=== PATIENT | female | born 1945 | race Caucasian/White ===

== ENCOUNTER 2016-09-21 12:31 | Outpatient (CLI) | payer MEDICARE, OTHER | END 2016-09-21 12:32 | disposition home or self-care (01) | DX: Z00.00 Encounter for general adult medical examination without abnormal findings (principal); E55.9 Vitamin D deficiency, unspecified; E78.5 Hyperlipidemia, unspecified; R07.82 Intercostal pain ==

== ENCOUNTER 2016-10-05 15:04 | Outpatient (CLI) | payer MEDICARE, OTHER | END 2016-10-05 15:05 | disposition home or self-care (01) | DX: Z12.31 Encounter for screening mammogram for malignant neoplasm of breast (principal) ==

== ENCOUNTER 2017-07-27 07:49 | Day surgery (SDC) | payer MEDICARE, OTHER ==
[2017-07-27] MEDS ORDERED: LACTATED RINGERS 1,000 ML IV ONE (08:19)
[2017-07-27] MEDS ORDERED: MIDAZOLAM 2 MG/2 ML VIAL IVP ONE (09:17)
[2017-07-27] MEDS ORDERED: fentaNYL 100 MCG/2 ML VIAL IVP ONE (09:17)
[2017-07-27 10:43] VITALS: BP 122/70
== END 2017-07-27 07:50 | disposition home or self-care (01) ==
LOC: SDS 07:49
PROVIDERS: ATTEND Surgery
PROC: 0DBN8ZX Excision of Sigmoid Colon, Via Natural or Artificial Opening Endoscopic, Diagnostic (ICD-10-PCS; 2017-07-27)
PROC: 0DBK8ZX Excision of Ascending Colon, Via Natural or Artificial Opening Endoscopic, Diagnostic (ICD-10-PCS; principal; 2017-07-27 09:00)
DX: Z12.11 Encounter for screening for malignant neoplasm of colon (principal); D12.4 Benign neoplasm of descending colon; D12.5 Benign neoplasm of sigmoid colon; K64.8 Other hemorrhoids; I10 Essential (primary) hypertension
CPT/HCPCS: 45380; 45385; J7120

== ENCOUNTER 2018-01-11 13:00 | Outpatient (CLI) | payer MEDICARE, OTHER | END 2018-01-11 23:59 | LOC: RT 13:00 | PROVIDERS: ATTEND Internal Medicine Cardiovascular Disease | DX: I25.10 Atherosclerotic heart disease of native coronary artery without angina pectoris (principal) | CPT/HCPCS: 93005 ==

== ENCOUNTER 2019-10-24 10:09 | Outpatient (CLI) | payer MEDICARE, OTHER ==
--- NOTE | 2019-10-29 08:43 | Mammography Report ---
Reason: ROUTINE MAMMO Procedure Date: 10/24/2019 Accession Number: [id number] / [id number] Procedure: RENZO - Screening Mammo w/Wiliam CPT Code: Final Report FULL RESULT: EXAM: Screening Mammo w/Wiliam DATE: 10/24/2019 11:01 AM CLINICAL HISTORY: Screening encounter. History of nulliparity. TECHNIQUE: (B) - Bilateral CC and MLO views were obtained. COMPARISON: 10/05/2016 through 08/25/2010. PARENCHYMAL PATTERN: (D) - The breast(s) demonstrate(s) heterogeneously dense fibroglandular parenchyma. FINDINGS: Coarse typically benign calcifications and large rodlike typically benign calcifications are redemonstrated. There are no suspicious masses, calcifications, or areas of distortion. IMPRESSION: Benign findings. BI-RADS category 2. RECOMMENDATION: (ANNUAL) - Recommend routine annual screening mammography. BI-RADS CATEGORY: (2) - Benign Findings. STANDARD QUALIFYING STATEMENTS: 1. This examination was not reviewed with the aid of Computer-Aided Detection (CAD). 2. A negative or benign imaging report should not preclude biopsy if clinically suspicious findings are present. 3. Dense breasts may obscure an underlying neoplasm. 4. This examination was reviewed with the aid of 3D breast imaging (tomosynthesis).
== END 2019-10-24 10:10 | disposition home or self-care (01) ==
LOC: DI 10:09
PROVIDERS: ATTEND Registered Nurse
DX: Z12.31 Encounter for screening mammogram for malignant neoplasm of breast (principal)
CPT/HCPCS: 77063; 77067

== ENCOUNTER 2019-10-24 10:13 | Outpatient (CLI) | payer MEDICARE, OTHER ==
--- NOTE | 2019-10-29 11:52 | DEXA Report ---
Reason: POST MENAPAUSAL Procedure Date: 10/24/2019 Accession Number: [id number] / [id number] Procedure: DEX - Dexa Spine and/or Hip CPT Code: Final Report FULL RESULT: EXAM: Dexa Spine and/or Hip DATE: 10/24/2019 11:12 AM CLINICAL HISTORY: POST MENAPAUSAL TECHNIQUE: Dual energy x-ray absorptiometry (DXA) was performed on a [employer] System. Regions measured are the AP Spine, femoral neck, and if needed forearm. COMPARISON: None. In accordance with the International Society for Clinical Densitometry (ISCD) guidelines, data from previous exams may be reanalyzed using current recommendations and techniques. This is done to allow a more accurate basis for comparison with the current study. FINDINGS: The data for the lumbar spine is as follows: BMD (g/cm/cm) T-SCORE Z-SCORE REGION L1 1.062 -0.6 0.0 L2 1.291 0.8 1.4 L3 1.235 0.3 0.9 L4 1.197 0.0 0.6 TOTAL 1.186 0.1 0.7 NOTE: All evaluable vertebrae are used for classification The data for the hip is as follows: BMD (g/cm/cm) T-SCORE Z-SCORE REGION Neck 0.864 -1.3 0.0 TOTAL 0.850 -1.3 -0.3 NOTE: The femoral neck or total proximal femur, whichever is lowest, is used for classification. IMPRESSION: THE WHO CLASSIFICATION BASED ON THE INTERNATIONAL REFERENCE STANDARD IS OSTEOPENIA. THE FRACTURE RISK IS INCREASED. RECOMMENDATION: Patients with diagnosis of osteoporosis or osteopenia should have regular bone mineral density assessment. For those eligible for Medicare, routine testing is allowed once every 2 years. Testing frequency can be increased for patients who have rapidly progressing disease or for those who are receiving medical therapy to restore bone mass. COMMENT: World Health Organization (WHO) definitions for osteoporosis and osteopenia: NORMAL BMD: T-score at -1.0 or higher, fracture risk is low OSTEOPENIA BMD: T-score between -1.0 and -2.5, fracture risk is increased. OSTEOPOROSIS BMD: T-score at -2.5 or lower, fracture risk is high. National Osteoporosis Foundation recommends: 1. Obtain adequate dietary calcium (at least 1200 mg per day) and vitamin D (400-800 international units per day). 2. Participate, as appropriate, in regular weightbearing and muscle-strengthening exercise. 3. Avoid tobacco use and reduce alcohol and caffeine intake. 4. For more detailed information see the website at www.NOF.org.
== END 2019-10-24 10:14 | disposition home or self-care (01) ==
LOC: DI 10:13
PROVIDERS: ATTEND Registered Nurse
DX: M85.88 Other specified disorders of bone density and structure, other site (principal); Z78.0 Asymptomatic menopausal state
CPT/HCPCS: 77080

== ENCOUNTER 2022-05-06 13:54 | Outpatient (CLI) | payer MEDICARE, OTHER ==
--- NOTE | 2022-05-06 16:05 | XRAY Report ---
PROCEDURE: Hip w/Pelvis 2-3V LT INDICATIONS: PAIN IN LEFT HIP JOINT TECHNIQUE: AP pelvis with lateral view(s) of the left hip(s). COMPARISON: None. FINDINGS: Bones: No fractures or dislocations. Degenerative changes of both hips are mild. Pelvic ring appears intact. No suspicious bony lesions. The visualized lower lumbar spine has degenerative changes wit h disc disease at L5-S1. Soft tissues: The visualized bowel gas pattern is normal. No suspicious soft tissue calcifications. IMPRESSION: Mild degenerative changes of both hips without acute abnormality. Reviewed by: Carlos Monsalve on 05/06/2022 4:04 PM PDT Approved by: Carlos Monsalve on 05/06/2022 4:04 PM PDT Station ID: [id number]
--- NOTE | 2022-05-06 16:07 | XRAY Report ---
PROCEDURE: Lumbar Spine 2 View INDICATIONS: LUMBAR RADICULOPATHY TECHNIQUE: 3 views of the lumbar spine were acquired. COMPARISON: None. FINDINGS: Bones: 5 [id number] vertebrae are present. Mild rightward curvature of the lumbar spine. Disc space narrowing of T12-L1. Disc space narrowing at L4-5. Anterior osteophytes at multiple levels. Sev ere facet arthrosis in the lower lumbar spine. There is normal bony alignment. No vertebral body com pression fractures. No suspicious bony lesions. Soft tissues: Overlying bowel gas pattern is normal. No suspicious soft tissue calcifications. IMPRESSION: 1. Lumbar spondylosis with multilevel disc disease, most severe at T12-L1 and L4-5. 2. No acute abnormality. 3. Mild rightward curvature of the lumbar spine. Reviewed by: Carlos Monsalve on 05/06/2022 4:06 PM PDT Approved by: Carlos Monsalve on 05/06/2022 4:06 PM PDT Station ID: [id number]
== END 2022-05-06 13:55 | disposition home or self-care (01) ==
LOC: DI.S 13:54
PROVIDERS: ATTEND Nurse Practitioner Family
DX: M16.0 Bilateral primary osteoarthritis of hip (principal); M47.26 Other spondylosis with radiculopathy, lumbar region

== ENCOUNTER 2023-07-04 10:43 | Outpatient (CLI) | payer MEDICARE, OTHER ==
--- NOTE | 2023-07-05 11:43 | Mammography Report ---
BILATERAL DIGITAL SCREENING MAMMOGRAM 3D/2D: 07/04/2023 CLINICAL: Routine screening. Comparison is made to exams dated: 10/24/2019 mammogram and 10/05/2016 mammogram - [facility]. There are scattered areas of fibroglandular density in both breasts (category b / 25%-50% glandular t issue). There are benign calcifications in both breasts. No significant masses, calcifications, or other findings are seen in either breast. There has been no significant interval change. IMPRESSION: BENIGN There is no mammographic evidence of malignancy. A 1 year screening mammogram is recommended. Based on the Tyrer Cuzick model (a risk assessment model) the patients lifetime risk is 2.4% and her 10 year risk is 0.0%. According to the ACR, ACS, and NCCN guidelines, an annual breast MRI exam wallace g with mammogram is recommended if the patients lifetime risk is 20% or greater. This exam was interpreted at Station ID: [id number]. NOTE: For mammograms, a report in lay terms will be sent to the patient. Approximately 15% of breast malignancies will not be visualized mammographically. In the management of a palpable breast mass, a negative mammogram must not discourage biopsy of a clinically suspicious lesion. Electronically Signed By: Vincent [email or web address]:07/04/2023 17:27:21 letter sent: No_Letter ACR BI-RADS Category 2: Benign Finding(s) 3342F PARENCHYMAL PATTERN: (A) - The breast(s) demonstrate(s) scattered fibroglandular densities. BI-RADS CATEGORY: (2) - 2 Mammogram [id number] 1 year screening LATERALITY: (B)
== END 2023-07-04 10:44 | disposition home or self-care (01) ==
LOC: DI 10:43
PROVIDERS: ATTEND Registered Nurse
DX: Z12.31 Encounter for screening mammogram for malignant neoplasm of breast (principal); R92.323 Mammographic fibroglandular density, bilateral breasts

== ENCOUNTER 2023-07-04 10:43 | Outpatient (CLI) | payer MEDICARE, OTHER ==
--- NOTE | 2023-07-04 14:58 | DEXA Report ---
PROCEDURE: Dexa Spine and/or Hip INDICATIONS: OSTEOPENIA TECHNIQUE: Dual energy x-ray absorptiometry (DXA) was performed on a [employer] System. Regions measur ed are the AP Spine, femoral neck, and if needed forearm. COMPARISON: None FINDINGS: Lumbar Spine: Bone Mineral Density 1.196 g/cm/cm,T score 0.1. Normal Left Femoral Neck: Bone Mineral Density 0.856 g/cm/cm, T score -1.3, osteopenia. Left Hip: Bone Mineral Density 0.876 g/cm/cm,T score -1.0. Normal (T score greater or equal to -1.0: NORMAL) (T score from -1.1 to -2.4: OSTEOPENIA) (T score less than or equal to -2.5 to: OSTEOPOROSIS) Impression: By WHO criteria, this patient has low bone density (osteopenia). Patients with diagnosis of osteoporosis or osteopenia should have regular bone mineral density assess ment. For those eligible for Medicare, routine testing is allowed once every 2 years. Testing frequ ency can be increased for patients who have rapidly progressing disease or for those who are receivin g medical therapy to restore bone mass. Reviewed by: Carlos Monsalve on 07/04/2023 2:57 PM PDT Approved by: Carlos Monsalve on 07/04/2023 2:57 PM PDT Station ID: [id number]
== END 2023-07-04 10:44 | disposition home or self-care (01) ==
LOC: DI 10:43
PROVIDERS: ATTEND Registered Nurse
DX: M85.88 Other specified disorders of bone density and structure, other site (principal)